=== PATIENT | male | born 1985 | race Caucasian/White ===

== ENCOUNTER 2024-04-20 11:54 | Emergency (ER) | payer MEDICAID ==
[~2024-04-20] VITALS: Ht 177.8 cm; Wt 99.0 kg
[2024-04-20 12:00] VITALS: O2SAT 97
[2024-04-20] MEDS ORDERED: AMOX1TAB16 MT (13:41)
[2024-04-20] MEDS: IBUPROFEN 600MG TABLET PO ONE (13:46)
[2024-04-20] MEDS: TETANUS, DIPHTHERIA, PERTUSSIS VAC/PF 0.5ML (>10YR OLD) IM ONE (13:46)
[2024-04-20 13:49] VITALS: BP 122/67; PULSE 74; RESP 16; TEMP 36.33624; O2SAT 97
== END 2024-04-20 13:50 | disposition home or self-care (01) ==
LOC: ER 13:42
DX: S41.151A Open bite of right upper arm, initial encounter (principal); S81.851A Open bite, right lower leg, initial encounter; W54.0XXA Bitten by dog, initial encounter; Y93.01 Activity, walking, marching and hiking; Y92.89 Other specified places as the place of occurrence of the external cause; Y99.8 Other external cause status
CPT/HCPCS: 90715; 90471; 99283; Z7610 ×2

== ENCOUNTER 2024-04-23 09:47 | Emergency (ER) | payer SELFPAY ==
[~2024-04-23] VITALS: Ht 167.6 cm; Wt 109.0 kg
[~2024-04-23 09:47] MED LIST: AMOX1TAB16 MT
[2024-04-23 10:12] VITALS: O2SAT 99
[2024-04-23] MEDS ORDERED: IBUP-2029 MT (11:26)
[2024-04-23 11:35] VITALS: BP 128/74; PULSE 70; RESP 16; TEMP 37.00296; O2SAT 99
== END 2024-04-23 11:37 | disposition home or self-care (01) ==
LOC: ER 09:47
DX: S41.151A Open bite of right upper arm, initial encounter (principal); S81.851A Open bite, right lower leg, initial encounter; Z48.00 Encounter for change or removal of nonsurgical wound dressing; W54.0XXA Bitten by dog, initial encounter; Y93.89 Activity, other specified; Y92.89 Other specified places as the place of occurrence of the external cause; Y99.8 Other external cause status
CPT/HCPCS: 87070; 87205; 99283; Z7610 ×2

== ENCOUNTER 2024-04-27 09:43 | Emergency (ER) | payer MEDICAID ==
[~2024-04-27] VITALS: Ht 167.6 cm; Wt 95.0 kg
[~2024-04-27 09:43] MED LIST changes: +IBUP-2029 MT
[2024-04-27 09:50] VITALS: O2SAT 97
[2024-04-27 10:03] VITALS: BP 139/87; PULSE 79; RESP 18; TEMP 36.72516; O2SAT 97
[2024-04-27] MEDS ORDERED: SULF1TAB48 MT (14:03)
== END 2024-04-27 14:38 | disposition home or self-care (01) ==
LOC: ER 09:43
DX: S41.151A Open bite of right upper arm, initial encounter (principal); Z48.00 Encounter for change or removal of nonsurgical wound dressing; W54.0XXA Bitten by dog, initial encounter; Y93.89 Activity, other specified; Y92.89 Other specified places as the place of occurrence of the external cause; Y99.8 Other external cause status
CPT/HCPCS: 99283